=== PATIENT | female | born 1960 | race Asian ===

== ENCOUNTER 2018-08-27 18:06 | Emergency (ER) | payer BC ==
[~2018-08-27] VITALS: Ht 147.3 cm; Wt 49.9 kg
--- NOTE | 2018-08-27 19:11 | Diagnostic Imaging Report ---
EXAMINATION: PA and lateral views of the chest. COMPARISON: None CLINICAL HISTORY: Coughing up phlegm DISCUSSION: Lines/tubes: None. Lungs: The lungs are well inflated and clear. There is no evidence of pneumonia or pulmonary edema. Pleura: There is no pleural effusion or pneumothorax. Heart and mediastinum: Cardiomediastinal silhouette is unremarkable. Pulmonary vasculature is normal. Bones and soft tissues: No acute bony abnormalities. Mild age-appropriate degenerative changes in the thoracic spine IMPRESSION: No acute cardiopulmonary abnormalities. Signed by: Dr. Jarvis Patricia M.D. on 08/27/2018 7:07 PM
== END 2018-08-27 19:43 | disposition home or self-care (01) ==
LOC: FSED 18:06
DX: R50.9 Fever, unspecified (principal); R05 Cough; J20.9 Acute bronchitis, unspecified; I10 Essential (primary) hypertension; R73.03 Prediabetes
CPT/HCPCS: 71046; 99283